=== PATIENT | male | born 1960 | race Two or more races ===

== ENCOUNTER 2023-12-14 13:53 | Inpatient (IN) | payer MEDICARE, OTHER ==
[~2023-12-14] VITALS: Ht 185.4 cm; Wt 76.2 kg
[2023-12-14 18:23] VITALS: BP 146/89; TEMP 98; O2SAT 94
[2023-12-14] MEDS ORDERED: MAG HYDROX/AL HYDROX/SIMETH 30 ML UDC PO PRN (18:30)
[2023-12-14] MEDS ORDERED: MAGNESIUM HYDROXIDE 30 ML UDC PO PRN (18:30)
[2023-12-14] MEDS: BLOOD SUGAR DIAGNOSTIC 1 EACH STRIP IN ONE (18:50)
[2023-12-14 19:15] VITALS: BP 141/88; TEMP 98.4; O2SAT 100
[2023-12-14] MEDS ORDERED: FURO20TA4 PO (19:56)
[2023-12-14] MEDS ORDERED: RISP1TAB7 PO (19:57)
[2023-12-14] MEDS ORDERED: LORA-259 PO (19:57)
[2023-12-14] MEDS ORDERED: RISP2TAB5 PO (19:58)
[2023-12-14] MEDS ORDERED: POTA-10 PO (19:59)
[2023-12-14 20:14] VITALS: BP 110/65; TEMP 98.4; O2SAT 97
[2023-12-14 20:18] VITALS: BP 141/88; TEMP 98.4; O2SAT 100
[2023-12-14] MEDS ORDERED: IBUP-2314 PO (21:22)
[2023-12-14] MEDS: risperiDONE 1 MG TABLET PO SCH (21:28)
[2023-12-15] MEDS: TEMAZEPAM 7.5 MG CAPSULE PO PRN (00:36)
[2023-12-15 08:00] VITALS: BP 137/60; TEMP 98; O2SAT 96
[2023-12-15] MEDS: POTASSIUM CHLORIDE 10 MEQ TABLET.SA PO SCH (08:41)
[2023-12-15] MEDS: NICOTINE PATCH (21MG) 21 MG PATCH.TD24 TD SCH (08:41)
[2023-12-15] MEDS: FUROSEMIDE 20 MG TABLET PO SCH (08:41)
[2023-12-15] MEDS: risperiDONE 1 MG TABLET PO SCH ×2 (08:42→16:56)
[2023-12-15 16:00] VITALS: BP 123/61; TEMP 97.7; O2SAT 96
[2023-12-15] MEDS: ENSURE ENLIVE 237 ML LIQUID (VANILLA) PO SCH (17:00)
[2023-12-15] MEDS: IBUPROFEN 200 MG TABLET PO PRN (20:30)
[2023-12-15 20:51] VITALS: BP 127/78; TEMP 97.8; O2SAT 97
[2023-12-16] MEDS: LORAZEPAM 0.5 MG TABLET PO PRN (03:12)
[2023-12-16 08:00] VITALS: BP 192/155; TEMP 98; O2SAT 100
[2023-12-16 16:00] VITALS: BP 117/80; TEMP 97.7; O2SAT 96
[2023-12-16 20:22] VITALS: BP 113/69; TEMP 97.9; O2SAT 100
[2023-12-17] MEDS: ENSURE ENLIVE 237 ML LIQUID (VANILLA) PO SCH (12:01)
[2023-12-17] MEDS: DIVALPROEX SODIUM 250 MG TABLET.DR PO SCH (13:29)
[2023-12-17 16:00] VITALS: BP 149/82; TEMP 98.6; O2SAT 96
[2023-12-17] MEDS: risperiDONE 1 MG TABLET PO SCH (16:31)
[2023-12-17 20:39] VITALS: BP 141/72; TEMP 98.6; O2SAT 100
[2023-12-18 08:00] VITALS: BP 133/87; TEMP 97.8; O2SAT 96
[2023-12-18 16:00] VITALS: BP 142/92; TEMP 97.8; O2SAT 100
[2023-12-18] MEDS: ACETAMINOPHEN 325 MG TABLET PO PRN (20:06)
[2023-12-18 20:16] VITALS: BP 145/89; TEMP 100.2; O2SAT 98
[2023-12-18 23:23] VITALS: BP 145/89; TEMP 98.7; O2SAT 98
[2023-12-19 08:00] VITALS: BP 127/73; TEMP 97.2; O2SAT 100
[2023-12-19 16:00] VITALS: BP 92/68; TEMP 98.4; O2SAT 100
[2023-12-19 20:00] VITALS: BP 123/65; TEMP 98; O2SAT 100
[2023-12-19] MEDS: DIVALPROEX SODIUM 500 MG TABLET.DR PO SCH (21:22)
[2023-12-20 08:00] VITALS: BP 96/67; TEMP 97.7; O2SAT 100
[2023-12-20 16:00] VITALS: BP 115/67; TEMP 98.7; O2SAT 100
[2023-12-20 20:00] VITALS: BP 127/79; TEMP 98.4; O2SAT 100
[2023-12-21 08:00] VITALS: BP 132/80; TEMP 97.9; O2SAT 98
[2023-12-21] MEDS: risperiDONE 1 MG TABLET PO SCH (08:43)
[2023-12-21 16:00] VITALS: BP 130/78; TEMP 97.8; O2SAT 97
[2023-12-21 20:00] VITALS: BP 128/78; TEMP 99.3; O2SAT 100
[2023-12-22 08:00] VITALS: BP_SYST 106; BP_SYST 128; BP_DIAS 65; BP_DIAS 77; TEMP 98.3; O2SAT 100
[2023-12-22 16:00] VITALS: BP 148/81; TEMP 98.3; O2SAT 97
[2023-12-22 20:17] VITALS: BP 122/79; TEMP 101.1; O2SAT 98
[2023-12-22 20:46] VITALS: BP 126/85; TEMP 98.2; O2SAT 97
[2023-12-23 06:36] LABS: BASOPHILS % (AUTO) 0.3 % (0.0-2.0); EOSINOPHILS % (AUTO) 0.1 % (0.0-6.0); HEMATOCRIT 37 % (39-51); LYMPHOCYTES # (AUTO) 1.4 K/uL (0.8-4.8); LYMPHOCYTES % (AUTO) 8.5 % (20.0-44.0); MEAN CORPUSCULAR HEMOGLOBIN 30 PG (26.0-33.0); MEAN CORPUSCULAR HGB CONC 32 g/dl (31.0-36.0); MEAN CORPUSCULAR VOLUME 94 fL (80-96); MONOCYTES # (AUTO) 1.9 K/uL (0.1-1.30); MONOCYTES % (AUTO) 11.5 % (2.0-12.0); NEUTROPHILS # (AUTO) 12.8 K/uL (1.8-8.9); NEUTROPHILS % (AUTO) 79.6 % (43.0-81.0); PLATELET COUNT (AUTO) 243 K/uL (150-450); RED BLOOD CELL COUNT(AUTO) 3.96 MIL/uL (4.5-6.0); WHITE BLOOD COUNT (AUTO) 16.1 K/uL (4.3-11.0)
[2023-12-23 07:00] LABS: ALBUMIN 2.9 g/dL (3.4-5.0); BILIRUBIN,TOTAL 1.2 mg/dL (0.2-1.0); CALCIUM, SERUM 9.2 mg/dL (8.5-10.1); CREATININE 0.8 mg/dL (0.6-1.3); POTASSIUM 4.6 mmol/L (3.5-5.1); TOTAL PROTEIN, SERUM 8.1 g/dL (6.4-8.2)
[2023-12-23 08:00] VITALS: BP 142/88; TEMP 97.6; O2SAT 98
[2023-12-23 20:51] VITALS: BP 132/86; TEMP 100.8; O2SAT 100
[2023-12-24 07:27] LABS: CALCIUM, SERUM 8.6 mg/dL (8.5-10.1); CREATININE 0.8 mg/dL (0.6-1.3); MAGNESIUM 2.2 mg/dL (1.8-2.4); PHOSPHORUS 3.4 mg/dL (2.5-4.9); POTASSIUM 4.2 mmol/L (3.5-5.1)
[2023-12-24 07:51] LABS: THYROID STIMULATING HORMONE 1.8 uIU/mL (0.358-3.74); URIC ACID 3.6 mg/dL (2.6-7.2)
[2023-12-24 11:36] LABS: ALBUMIN 2.5 g/dL (3.4-5.0); BILIRUBIN,DIRECT 0.7 mg/dL (0.0-0.2); BILIRUBIN,TOTAL 1.1 mg/dL (0.2-1.0); TOTAL PROTEIN, SERUM 7.1 g/dL (6.4-8.2)
[2023-12-24] MEDS: risperiDONE 1 MG TABLET PO SCH (21:11)
[2023-12-25 08:00] VITALS: BP 151/87; TEMP 97.7; O2SAT 100
[2023-12-25 12:27] LABS: BASOPHILS # (AUTO) 0.1 K/uL (0.0-0.2); BASOPHILS % (AUTO) 0.4 % (0.0-2.0); EOSINOPHILS % (AUTO) 0.1 % (0.0-6.0); HEMATOCRIT 35 % (39-51); HEMOGLOBIN 11.5 g/dL (13.5-17.5); LYMPHOCYTES # (AUTO) 1.2 K/uL (0.8-4.8); MEAN CORPUSCULAR HEMOGLOBIN 30 PG (26.0-33.0); MEAN CORPUSCULAR HGB CONC 33 g/dl (31.0-36.0); MEAN CORPUSCULAR VOLUME 93 fL (80-96); MONOCYTES # (AUTO) 2.6 K/uL (0.1-1.30); MONOCYTES % (AUTO) 12.8 % (2.0-12.0); NEUTROPHILS # (AUTO) 16.1 K/uL (1.8-8.9); NEUTROPHILS % (AUTO) 80.7 % (43.0-81.0); PLATELET COUNT (AUTO) 264 K/uL (150-450); RED BLOOD CELL COUNT(AUTO) 3.78 MIL/uL (4.5-6.0); RED CELL DISTRIBUTION WIDTH 12.9 % (11.5-15.0); WHITE BLOOD COUNT (AUTO) 19.9 K/uL (4.3-11.0)
[2023-12-25 12:31] LABS: CREATININE 0.7 mg/dL (0.6-1.3); POTASSIUM 4.1 mmol/L (3.5-5.1)
[2023-12-25 13:13] LABS: APPEARANCE,URINE CLEAR (CLEAR); BILIRUBIN,URINE NEGATIVE (NEGATIVE); BLOOD, URINE NEGATIVE Ery/uL (NEGATIVE); COLOR,URINE DARK YELLOW (YELLOW); KETONES,URINE 1+ mg/dL (NEGATIVE); LEUKOCYTE ESTERASE ,URINE NEGATIVE (NEGATIVE); NITRITE, URINE NEGATIVE (NEGATIVE); PROTEIN,URINE NEGATIVE (NEGATIVE); UGLUCOSE NEGATIVE (NEGATIVE)
[2023-12-25 13:22] LABS: ADD URINE CULTURE NO; BACTERIA,URINE Rare /HPF (None Seen); SQUAMOUS EPITHELIAL CELL,UR Few /HPF (None Seen)
[2023-12-25 16:15] VITALS: BP 105/73; TEMP 97.8; O2SAT 97
[2023-12-25 20:00] VITALS: BP 135/81; TEMP 97.9; O2SAT 100
[2023-12-25] MEDS: AMOX/CLAVULANATE 875 MG TABLET PO SCH (21:24)
[2023-12-26 06:57] LABS: BASOPHILS # (AUTO) 0.1 K/uL (0.0-0.2); BASOPHILS % (AUTO) 0.3 % (0.0-2.0); EOSINOPHILS % (AUTO) 0.2 % (0.0-6.0); HEMATOCRIT 33 % (39-51); HEMOGLOBIN 11.2 g/dL (13.5-17.5); LYMPHOCYTES # (AUTO) 1.4 K/uL (0.8-4.8); LYMPHOCYTES % (AUTO) 7.1 % (20.0-44.0); MEAN CORPUSCULAR HEMOGLOBIN 31 PG (26.0-33.0); MEAN CORPUSCULAR HGB CONC 33 g/dl (31.0-36.0); MEAN CORPUSCULAR VOLUME 91 fL (80-96); MONOCYTES # (AUTO) 2.8 K/uL (0.1-1.30); MONOCYTES % (AUTO) 13.8 % (2.0-12.0); NEUTROPHILS # (AUTO) 15.8 K/uL (1.8-8.9); NEUTROPHILS % (AUTO) 78.6 % (43.0-81.0); PLATELET COUNT (AUTO) 251 K/uL (150-450); RED BLOOD CELL COUNT(AUTO) 3.66 MIL/uL (4.5-6.0); RED CELL DISTRIBUTION WIDTH 12.6 % (11.5-15.0); WHITE BLOOD COUNT (AUTO) 20.1 K/uL (4.3-11.0)
[2023-12-26 07:29] LABS: CALCIUM, SERUM 8.6 mg/dL (8.5-10.1); CREATININE 0.6 mg/dL (0.6-1.3); MAGNESIUM 2.2 mg/dL (1.8-2.4); PHOSPHORUS 3.7 mg/dL (2.5-4.9); POTASSIUM 3.9 mmol/L (3.5-5.1)
[2023-12-26 08:00] VITALS: BP 101/60; TEMP 98.2; O2SAT 100
[2023-12-26 16:00] VITALS: BP 96/71; TEMP 98.4; O2SAT 100
[2023-12-26 20:00] VITALS: BP 100/78; TEMP 98.7; O2SAT 95
[2023-12-27 07:29] LABS: BASOPHILS % (AUTO) 0.1 % (0.0-2.0); EOSINOPHILS % (AUTO) 0.1 % (0.0-6.0); HEMATOCRIT 34 % (39-51); LYMPHOCYTES # (AUTO) 1.5 K/uL (0.8-4.8); LYMPHOCYTES % (AUTO) 7.4 % (20.0-44.0); MEAN CORPUSCULAR HEMOGLOBIN 30 PG (26.0-33.0); MEAN CORPUSCULAR HGB CONC 33 g/dl (31.0-36.0); MEAN CORPUSCULAR VOLUME 91 fL (80-96); MONOCYTES # (AUTO) 2.8 K/uL (0.1-1.30); MONOCYTES % (AUTO) 13.6 % (2.0-12.0); NEUTROPHILS # (AUTO) 16.3 K/uL (1.8-8.9); NEUTROPHILS % (AUTO) 78.8 % (43.0-81.0); PLATELET COUNT (AUTO) 271 K/uL (150-450); RED BLOOD CELL COUNT(AUTO) 3.72 MIL/uL (4.5-6.0); RED CELL DISTRIBUTION WIDTH 12.6 % (11.5-15.0); WHITE BLOOD COUNT (AUTO) 20.7 K/uL (4.3-11.0)
[2023-12-27 07:45] LABS: CALCIUM, SERUM 9.1 mg/dL (8.5-10.1); CREATININE 0.9 mg/dL (0.6-1.3); MAGNESIUM 2.3 mg/dL (1.8-2.4); PHOSPHORUS 4.1 mg/dL (2.5-4.9); POTASSIUM 3.9 mmol/L (3.5-5.1)
[2023-12-27 08:00] VITALS: BP 111/70; TEMP 97.9; O2SAT 100
[2023-12-27] MEDS: CEFTRIAXONE 1 G VIAL IM SCH (11:21)
[2023-12-27 16:00] VITALS: BP 100/60; TEMP 97.5; O2SAT 98
[2023-12-27 19:59] VITALS: BP 98/72; TEMP 97.9; O2SAT 99
[2023-12-28 07:39] LABS: BASOPHILS # (AUTO) 0.1 K/uL (0.0-0.2); BASOPHILS % (AUTO) 0.6 % (0.0-2.0); EOSINOPHILS % (AUTO) 0.1 % (0.0-6.0); HEMATOCRIT 35 % (39-51); HEMOGLOBIN 11.3 g/dL (13.5-17.5); LYMPHOCYTES # (AUTO) 1.6 K/uL (0.8-4.8); LYMPHOCYTES % (AUTO) 11.8 % (20.0-44.0); MEAN CORPUSCULAR HEMOGLOBIN 30 PG (26.0-33.0); MEAN CORPUSCULAR HGB CONC 32 g/dl (31.0-36.0); MEAN CORPUSCULAR VOLUME 92 fL (80-96); MONOCYTES # (AUTO) 1.9 K/uL (0.1-1.30); MONOCYTES % (AUTO) 13.7 % (2.0-12.0); NEUTROPHILS % (AUTO) 73.8 % (43.0-81.0); PLATELET COUNT (AUTO) 269 K/uL (150-450); RED BLOOD CELL COUNT(AUTO) 3.81 MIL/uL (4.5-6.0); RED CELL DISTRIBUTION WIDTH 12.2 % (11.5-15.0); WHITE BLOOD COUNT (AUTO) 13.6 K/uL (4.3-11.0)
[2023-12-28 07:47] LABS: CALCIUM, SERUM 8.4 mg/dL (8.5-10.1); CREATININE 0.7 mg/dL (0.6-1.3); MAGNESIUM 2.2 mg/dL (1.8-2.4); PHOSPHORUS 3.2 mg/dL (2.5-4.9); POTASSIUM 4.3 mmol/L (3.5-5.1)
[2023-12-28 08:00] VITALS: BP 119/70; TEMP 97.7; O2SAT 98
[2023-12-28] MEDS ORDERED: ACET325T53 PO (15:04)
[2023-12-28] MEDS ORDERED: NICO-676 TD (15:04)
[2023-12-28] MEDS ORDERED: MAGN400O6 PO (15:04)
[2023-12-28] MEDS ORDERED: RISP2TAB85 PO (15:04)
[2023-12-28] MEDS ORDERED: TEMA7.5C12 PO (15:04)
[2023-12-28] MEDS ORDERED: CEFT1VIA15 IM (15:04)
[2023-12-28] MEDS ORDERED: IBUP-1953 PO (15:04)
[2023-12-28] MEDS ORDERED: RISP3TAB61 PO (15:04)
[2023-12-28] MEDS ORDERED: DIVA-78 PO (15:04)
[2023-12-28] MEDS ORDERED: LORA-258 PO (15:04)
[2023-12-28] MEDS ORDERED: MAG30ORA PO (15:04)
== END 2023-12-28 13:55 | disposition short-term general hospital (02) | DRG 885 ==
LOC: GPS 17:17
PROVIDERS: ADMIT Psychiatry & Neurology Psychosomatic Medicine; ATTEND Nurse Practitioner Acute Care
DX: F25.9 Schizoaffective disorder, unspecified (principal); E43 Unspecified severe protein-calorie malnutrition; J18.9 Pneumonia, unspecified organism; Z59.00 Homelessness unspecified; E87.1 Hypo-osmolality and hyponatremia; F41.9 Anxiety disorder, unspecified; F32.A Depression, unspecified; D64.9 Anemia, unspecified; E88.09 Other disorders of plasma-protein metabolism, not elsewhere classified; F29 Unspecified psychosis not due to a substance or known physiological condition; Z73.6 Limitation of activities due to disability; M62.50 Muscle wasting and atrophy, not elsewhere classified, unspecified site; F17.210 Nicotine dependence, cigarettes, uncomplicated; E86.9 Volume depletion, unspecified; R60.9 Edema, unspecified; K46.9 Unspecified abdominal hernia without obstruction or gangrene; Z20.822 Contact with and (suspected) exposure to COVID-19; Z68.22 Body mass index [BMI] 22.0-22.9, adult; E80.6 Other disorders of bilirubin metabolism
CPT/HCPCS: 36415; 71045-TC; 80048-TC; 80053-TC; 80076-TC; 80164-TC; 81001; 83735-TC; 83935-TC; 84100-TC; 84300-TC; 84443-TC; 84550-TC; 85025-TC; 87081-TC; 87086-TC; 93970-TC; 97116-TC; J0696

== ENCOUNTER 2023-12-28 14:36 | Inpatient (IN) | payer MEDICARE, OTHER ==
[~2023-12-28] VITALS: Ht 170.2 cm; Wt 87.5 kg
[~2023-12-28 14:36] MED LIST: FURO20TA4 PO; IBUP-2314 PO; POTA-10 PO
[2023-12-28] MEDS ORDERED: ACETAMINOPHEN 325 MG TABLET PO PRN (15:00)
[2023-12-28] MEDS ORDERED: ONDANSETRON HCL/PF 4 MG/2 ML VIAL IVP PRN (15:00)
[2023-12-28] MEDS ORDERED: TEMA7.5C12 PO (15:04)
[2023-12-28] MEDS ORDERED: MAGN400O6 PO (15:04)
[2023-12-28] MEDS ORDERED: RISP2TAB85 PO (15:04)
[2023-12-28] MEDS ORDERED: DIVA-78 PO (15:04)
[2023-12-28] MEDS ORDERED: IBUP-1953 PO (15:04)
[2023-12-28] MEDS ORDERED: ACET325T53 PO (15:04)
[2023-12-28] MEDS ORDERED: RISP3TAB61 PO (15:04)
[2023-12-28] MEDS ORDERED: LORA-258 PO (15:04)
[2023-12-28] MEDS ORDERED: NICO-676 TD (15:04)
[2023-12-28] MEDS ORDERED: MAG30ORA PO (15:04)
[2023-12-28] MEDS ORDERED: CEFT1VIA15 IM (15:04)
[2023-12-28 16:00] VITALS: BP 117/76; TEMP 97.6; O2SAT 100
[2023-12-28 20:00] VITALS: BP 110/80; TEMP 99.1; O2SAT 99
[2023-12-28] MEDS ORDERED: MAG HYDROX/AL HYDROX/SIMETH 30 ML UDC PO PRN (22:00)
[2023-12-28] MEDS ORDERED: TEMAZEPAM 7.5 MG CAPSULE PO PRN (22:00)
[2023-12-28] MEDS ORDERED: LORAZEPAM 0.5 MG TABLET PO PRN (22:00)
[2023-12-28] MEDS ORDERED: IBUPROFEN 400 MG TABLET PO PRN (22:00)
[2023-12-28] MEDS ORDERED: MAGNESIUM HYDROXIDE 30 ML UDC PO PRN (22:00)
[2023-12-28] MEDS: risperiDONE 1 MG TABLET PO SCH (22:32)
[2023-12-29] MEDS: NICOTINE PATCH (14MG) 14 MG PATCH.TD24 TD SCH (09:00)
[2023-12-29] MEDS: CEFTRIAXONE 1 G VIAL IM SCH (10:00)
[2023-12-29] MEDS: risperiDONE 1 MG TABLET PO SCH (10:02)
[2023-12-29] MEDS: POTASSIUM CHLORIDE 10 MEQ TABLET.SA PO SCH (10:03)
[2023-12-29] MEDS: DIVALPROEX SODIUM 500 MG TABLET.DR PO SCH (10:03)
[2023-12-29] MEDS: FUROSEMIDE 20 MG TABLET PO SCH (10:03)
== END 2023-12-29 16:00 | DRG 178 ==
LOC: MED 14:36
PROVIDERS: ADMIT Nurse Practitioner Acute Care; ATTEND Nurse Practitioner Acute Care
DX: J15.69 Pneumonia due to other Gram-negative bacteria (principal); E87.1 Hypo-osmolality and hyponatremia; Z59.00 Homelessness unspecified; F20.9 Schizophrenia, unspecified; E86.9 Volume depletion, unspecified; F17.210 Nicotine dependence, cigarettes, uncomplicated; F29 Unspecified psychosis not due to a substance or known physiological condition; Z73.6 Limitation of activities due to disability; K46.9 Unspecified abdominal hernia without obstruction or gangrene; D72.829 Elevated white blood cell count, unspecified
CPT/HCPCS: G0378; J0696

== ENCOUNTER 2024-01-04 19:54 | Inpatient (IN) | payer MEDICARE, OTHER ==
[~2024-01-04] VITALS: Ht 185.4 cm; Wt 87.5 kg
[~2024-01-04 19:54] MED LIST changes: +ACET325T53 PO; +CEFT1VIA15 IM; +DIVA-78 PO; +IBUP-1953 PO; -IBUP-2314 PO; +LORA-258 PO; +MAG30ORA PO; +MAGN400O6 PO; +NICO-676 TD; +RISP2TAB85 PO; +RISP3TAB61 PO; +TEMA7.5C12 PO
[2024-01-04 21:29] LABS: APPEARANCE,URINE Clear (CLEAR); BILIRUBIN,URINE Negative (NEGATIVE); BLOOD, URINE Negative Ery/uL (NEGATIVE); COLOR,URINE YELLOW (YELLOW); KETONES,URINE Negative (NEGATIVE); LEUKOCYTE ESTERASE ,URINE Negative (NEGATIVE); NITRITE, URINE Negative (NEGATIVE); PROTEIN,URINE Negative (NEGATIVE); UGLUCOSE Negative (NEGATIVE)
[2024-01-04 21:41] LABS: RBC,URINE 0-2 /HPF (0-2)
[2024-01-04 21:42] LABS: ADD URINE CULTURE NO; AMPHETAMINE, URINE NEGATIVE (NEGATIVE); BACTERIA,URINE Few /HPF (None Seen); BARBITURATE, URINE NEGATIVE (NEGATIVE); BENZODIAZEPINE, URINE NEGATIVE (NEGATIVE); CANNABINOID, URINE NEGATIVE (NEGATIVE); COCCAINE, URINE NEGATIVE (NEGATIVE); OPIATE, URINE NEGATIVE (NEGATIVE); PHENCYCLIDINE SCREEN,URINE NEGATIVE (NEGATIVE); SQUAMOUS EPITHELIAL CELL,UR Few /HPF (None Seen); WBC,URINE 0-2 /HPF (0-3)
[2024-01-04 22:24] LABS: BASOPHILS # (AUTO) 0.1 K/uL (0.0-0.2); BASOPHILS % (AUTO) 0.9 % (0.0-2.0); EOSINOPHILS # (AUTO) 0.1 K/uL (0.0-0.7); EOSINOPHILS % (AUTO) 0.7 % (0.0-6.0); HEMATOCRIT 35 % (39-51); HEMOGLOBIN 11.4 g/dL (13.5-17.5); LYMPHOCYTES # (AUTO) 2.5 K/uL (0.8-4.8); LYMPHOCYTES % (AUTO) 31.5 % (20.0-44.0); MEAN CORPUSCULAR HEMOGLOBIN 30 PG (26.0-33.0); MEAN CORPUSCULAR HGB CONC 33 g/dl (31.0-36.0); MEAN CORPUSCULAR VOLUME 92 fL (80-96); MONOCYTES # (AUTO) 1.2 K/uL (0.1-1.30); MONOCYTES % (AUTO) 14.8 % (2.0-12.0); NEUTROPHILS # (AUTO) 4.1 K/uL (1.8-8.9); NEUTROPHILS % (AUTO) 52.1 % (43.0-81.0); PLATELET COUNT (AUTO) 213 K/uL (150-450); RED CELL DISTRIBUTION WIDTH 13.1 % (11.5-15.0); WHITE BLOOD COUNT (AUTO) 7.8 K/uL (4.3-11.0)
[2024-01-04 22:41] LABS: POTASSIUM 4.2 mmol/L (3.5-5.1); SODIUM SERUM 143 mmol/L (136-145)
[2024-01-04 23:02] LABS: ALCOHOL, BLOOD < 3 mg/dL (0-10); ALKALINE PHOSPHATASE 65 U/L (46-116); ASPARTATE AMINOTRANSFERASE 44 U/L (15-37); BILIRUBIN,TOTAL 0.6 mg/dL (0.2-1.0); CALCIUM, SERUM 8.8 mg/dL (8.5-10.1); CARBON DIOXIDE 30 mmol/L (21-32); CREATININE 0.7 mg/dL (0.6-1.3); GLUCOSE 82 mg/dL (74-106); TOTAL PROTEIN, SERUM 7.6 g/dL (6.4-8.2); UREA NITROGEN, BLOOD 15 mg/dL (7-18)
[2024-01-04 23:03] LABS: SALICYLATE 0.6 mg/dL (2.8-20.0)
[2024-01-04 23:16] LABS: ACETAMINOPHEN 34 ug/ml (10-30)
[2024-01-04 23:38] LABS: ALBUMIN 2.7 g/dL (3.4-5.0)
[2024-01-04 23:39] LABS: ALANINE AMINOTRANSFERASE 35 U/L (12-78); BILIRUBIN,DIRECT 0.3 mg/dL (0.0-0.2); CHLORIDE 103 mmol/L (98-107)
[2024-01-05] MEDS ORDERED: ALBU2.5V38 IH (05:13)
[2024-01-05] MEDS: BLOOD SUGAR DIAGNOSTIC 1 EACH STRIP IN ONE (05:21)
[2024-01-05] MEDS ORDERED: LORAZEPAM 0.5 MG TABLET PO PRN (05:30)
[2024-01-05] MEDS ORDERED: TEMAZEPAM 7.5 MG CAPSULE PO PRN (05:30)
[2024-01-05] MEDS ORDERED: MAGNESIUM HYDROXIDE 30 ML UDC PO PRN (05:30)
[2024-01-05] MEDS ORDERED: MAG HYDROX/AL HYDROX/SIMETH 30 ML UDC PO PRN (05:30)
[2024-01-05 05:33] VITALS: BP 125/74; TEMP 98; O2SAT 98
[2024-01-05 08:00] VITALS: BP 111/77; TEMP 98; O2SAT 100
[2024-01-05] MEDS ORDERED: ALBU0.633 IH (08:22)
[2024-01-05] MEDS: NICOTINE PATCH (14MG) 14 MG PATCH.TD24 TD SCH (08:39)
[2024-01-05] MEDS: DIVALPROEX SODIUM 500 MG TABLET.DR PO SCH (13:46)
[2024-01-05] MEDS: risperiDONE 1 MG TABLET PO SCH (13:46)
[2024-01-05 16:00] VITALS: BP 101/67; TEMP 98.3; O2SAT 100
[2024-01-05] MEDS ORDERED: ALBUTEROL FS 2.5 MG/3 ML VIAL.NEB NEB PRN (17:00)
[2024-01-05 21:07] VITALS: BP 106/77; TEMP 98.4; O2SAT 96
[2024-01-06 08:00] VITALS: BP 100/80; TEMP 98.6; O2SAT 98
[2024-01-06] MEDS: NICOTINE PATCH (14MG) 14 MG PATCH.TD24 TD SCH (08:31)
[2024-01-06] MEDS: POTASSIUM CHLORIDE 10 MEQ TABLET.SA PO SCH (08:31)
[2024-01-06] MEDS: FUROSEMIDE 20 MG TABLET PO SCH (08:32)
[2024-01-06 16:00] VITALS: BP 100/77; TEMP 97.7; O2SAT 99
[2024-01-06 20:37] VITALS: BP 124/88; TEMP 98.6; O2SAT 98
[2024-01-07 08:00] VITALS: BP 89/56; TEMP 98.4; O2SAT 97
[2024-01-07 16:00] VITALS: BP 93/66; TEMP 97.8; O2SAT 100
[2024-01-07 20:36] VITALS: BP 90/58; TEMP 98.6; O2SAT 99
[2024-01-07] MEDS: risperiDONE 1 MG TABLET PO SCH (21:23)
[2024-01-08 08:00] VITALS: BP 104/79; TEMP 98.4; O2SAT 99
[2024-01-08 16:00] VITALS: BP 122/96; TEMP 98.8; O2SAT 96
[2024-01-08 20:26] VITALS: BP 107/79; TEMP 98.3; O2SAT 100
[2024-01-08] MEDS: risperiDONE 1 MG TABLET PO SCH (21:46)
[2024-01-09 08:00] VITALS: BP 105/74; TEMP 98; O2SAT 100
[2024-01-09 16:00] VITALS: BP 112/80; TEMP 97.8; O2SAT 100
[2024-01-09 20:43] VITALS: BP 113/70; TEMP 98.1; O2SAT 100
[2024-01-10 08:00] VITALS: BP 95/68; TEMP 98; O2SAT 97
[2024-01-10 16:00] VITALS: BP 95/66; TEMP 98.6; O2SAT 98
[2024-01-10 20:00] VITALS: BP 109/69; TEMP 98; O2SAT 98
[2024-01-11 08:00] VITALS: BP 104/68; TEMP 98; O2SAT 99
[2024-01-11 16:00] VITALS: BP 102/60; TEMP 98; O2SAT 100
[2024-01-11 20:00] VITALS: BP 105/73; TEMP 97.7; O2SAT 100
[2024-01-11] MEDS: LORAZEPAM 0.5 MG TABLET PO PRN (22:04)
[2024-01-12 09:11] VITALS: BP 94/71; TEMP 97.6; O2SAT 98
[2024-01-12 15:53] VITALS: BP 110/63; TEMP 97.6; O2SAT 98
[2024-01-12 20:37] VITALS: BP 106/68; TEMP 98; O2SAT 100
[2024-01-12] MEDS: TEMAZEPAM 7.5 MG CAPSULE PO PRN (23:35)
[2024-01-13 08:00] VITALS: BP 96/62; TEMP 98; O2SAT 98
[2024-01-13 16:00] VITALS: BP 95/63; TEMP 98.1; O2SAT 100
[2024-01-13 20:49] VITALS: BP 111/71; TEMP 97.9; O2SAT 100
[2024-01-14 08:00] VITALS: BP 109/81; TEMP 97.8; O2SAT 98
[2024-01-14 16:00] VITALS: BP 110/82; TEMP 97.9; O2SAT 98
[2024-01-14 21:14] VITALS: BP 109/68; TEMP 98.2; O2SAT 99
[2024-01-15 08:00] VITALS: BP 119/77; TEMP 98.6; O2SAT 100
[2024-01-15 16:00] VITALS: BP 118/69; TEMP 98.6; O2SAT 100
[2024-01-15 20:00] VITALS: BP 100/62; TEMP 97.6; O2SAT 100
[2024-01-15] MEDS: ACETAMINOPHEN 325 MG TABLET PO PRN (21:55)
[2024-01-16 08:00] VITALS: BP 99/64; TEMP 98; O2SAT 100
== END 2024-01-16 14:30 | DRG 885 ==
LOC: ER 20:00 → GPS 01-05 04:25
PROVIDERS: ADMIT Psychiatry & Neurology Psychosomatic Medicine; ATTEND Nurse Practitioner Family
DX: F25.9 Schizoaffective disorder, unspecified (principal); I11.0 Hypertensive heart disease with heart failure; E44.0 Moderate protein-calorie malnutrition; I50.9 Heart failure, unspecified; Z20.822 Contact with and (suspected) exposure to COVID-19; E88.09 Other disorders of plasma-protein metabolism, not elsewhere classified; D64.9 Anemia, unspecified; G62.9 Polyneuropathy, unspecified; J44.9 Chronic obstructive pulmonary disease, unspecified; Z87.01 Personal history of pneumonia (recurrent); Z73.6 Limitation of activities due to disability; R74.01 Elevation of levels of liver transaminase levels; Z68.25 Body mass index [BMI] 25.0-25.9, adult; R41.9 Unspecified symptoms and signs involving cognitive functions and awareness
CPT/HCPCS: 36415; 71045-TC; 80048-TC; 80076-TC; 81001; 85025-TC; 87081-TC; 97116-TC; 97530-TC; A4223; G0480; J7070

== ENCOUNTER 2024-02-07 18:55 | Inpatient (IN) | payer MEDICARE, OTHER ==
[~2024-02-07] VITALS: Ht 177.8 cm; Wt 82.1 kg
[~2024-02-07 18:55] MED LIST changes: +ALBU0.633 IH; -CEFT1VIA15 IM; -RISP3TAB61 PO
[2024-02-07] MEDS ORDERED: MAG-5 PO (19:22)
[2024-02-07 19:27] LABS: BASOPHILS % (AUTO) 0.5 % (0.0-2.0); EOSINOPHILS # (AUTO) 0.1 K/uL (0.0-0.7); EOSINOPHILS % (AUTO) 1.7 % (0.0-6.0); HEMATOCRIT 34 % (39-51); HEMOGLOBIN 11.2 g/dL (13.5-17.5); LYMPHOCYTES # (AUTO) 1.6 K/uL (0.8-4.8); LYMPHOCYTES % (AUTO) 31.6 % (20.0-44.0); MEAN CORPUSCULAR HEMOGLOBIN 31 PG (26.0-33.0); MEAN CORPUSCULAR HGB CONC 33 g/dl (31.0-36.0); MEAN CORPUSCULAR VOLUME 93 fL (80-96); MONOCYTES # (AUTO) 0.6 K/uL (0.1-1.30); MONOCYTES % (AUTO) 12.6 % (2.0-12.0); NEUTROPHILS # (AUTO) 2.7 K/uL (1.8-8.9); NEUTROPHILS % (AUTO) 53.6 % (43.0-81.0); PLATELET COUNT (AUTO) 152 K/uL (150-450); RED BLOOD CELL COUNT(AUTO) 3.67 MIL/uL (4.5-6.0); RED CELL DISTRIBUTION WIDTH 15.6 % (11.5-15.0); WHITE BLOOD COUNT (AUTO) 5.1 K/uL (4.3-11.0)
[2024-02-07 19:50] LABS: CALCIUM, SERUM 8.7 mg/dL (8.5-10.1); CARBON DIOXIDE 30 mmol/L (21-32); CHLORIDE 105 mmol/L (98-107); CREATININE 1.1 mg/dL (0.6-1.3); GLUCOSE 94 mg/dL (74-106); POTASSIUM 4.1 mmol/L (3.5-5.1); SODIUM SERUM 140 mmol/L (136-145); UREA NITROGEN, BLOOD 25 mg/dL (7-18)
[2024-02-07 19:56] LABS: ALANINE AMINOTRANSFERASE 30 U/L (12-78); ALBUMIN 2.9 g/dL (3.4-5.0); ALKALINE PHOSPHATASE 64 U/L (46-116); ASPARTATE AMINOTRANSFERASE 37 U/L (15-37); BILIRUBIN,DIRECT 0.3 mg/dL (0.0-0.2); BILIRUBIN,TOTAL 0.4 mg/dL (0.2-1.0); TOTAL PROTEIN, SERUM 7.4 g/dL (6.4-8.2)
[2024-02-07 20:03] LABS: ACETAMINOPHEN < 2 ug/ml (10-30); ALCOHOL, BLOOD < 3 mg/dL (0-10); SALICYLATE 1.2 mg/dL (2.8-20.0)
[2024-02-07 20:37] LABS: APPEARANCE,URINE Clear (CLEAR); BILIRUBIN,URINE Negative (NEGATIVE); BLOOD, URINE Negative Ery/uL (NEGATIVE); COLOR,URINE YELLOW (YELLOW); KETONES,URINE Negative (NEGATIVE); LEUKOCYTE ESTERASE ,URINE Negative (NEGATIVE); NITRITE, URINE Negative (NEGATIVE); PROTEIN,URINE Negative (NEGATIVE); UGLUCOSE Negative (NEGATIVE)
[2024-02-07 20:46] LABS: ADD URINE CULTURE NO; BACTERIA,URINE Rare /HPF (None Seen); RBC,URINE 0-2 /HPF (0-2); SQUAMOUS EPITHELIAL CELL,UR None Seen /HPF (None Seen); WBC,URINE 0-2 /HPF (0-3)
[2024-02-07 20:51] LABS: AMPHETAMINE, URINE NEGATIVE (NEGATIVE); BARBITURATE, URINE NEGATIVE (NEGATIVE); BENZODIAZEPINE, URINE NEGATIVE (NEGATIVE); CANNABINOID, URINE NEGATIVE (NEGATIVE); COCCAINE, URINE NEGATIVE (NEGATIVE); OPIATE, URINE NEGATIVE (NEGATIVE); PHENCYCLIDINE SCREEN,URINE NEGATIVE (NEGATIVE)
[2024-02-07] MEDS ORDERED: MAGNESIUM HYDROXIDE 30 ML UDC PO PRN ×2 (21:00→23:00)
[2024-02-07] MEDS ORDERED: ALBUTEROL FS 2.5 MG/3 ML VIAL.NEB NEB PRN (21:00)
[2024-02-07] MEDS ORDERED: ALBUTEROL SULFATE IH PRN (21:00)
[2024-02-07] MEDS ORDERED: MAG HYDROX/AL HYDROX/SIMETH 30 ML UDC PO PRN ×2 (21:00→23:00)
[2024-02-07] MEDS ORDERED: ACETAMINOPHEN 325 MG TABLET PO PRN ×2 (21:00→23:00)
[2024-02-07 21:50] VITALS: O2SAT 96
[2024-02-07] MEDS ORDERED: TEMAZEPAM 7.5 MG CAPSULE PO PRN ×2 (23:00)
[2024-02-07] MEDS ORDERED: LORAZEPAM 0.5 MG TABLET PO PRN (23:00)
[2024-02-08] MEDS: BLOOD SUGAR DIAGNOSTIC 1 EACH STRIP IN ONE (00:02)
[2024-02-08 08:00] VITALS: BP 121/84; TEMP 98.6; O2SAT 98
[2024-02-08] MEDS: FUROSEMIDE 20 MG TABLET PO SCH (08:50)
[2024-02-08] MEDS: NICOTINE PATCH (14MG) 14 MG PATCH.TD24 TD SCH (08:50)
[2024-02-08 16:00] VITALS: BP 106/75; TEMP 97.7; O2SAT 99
[2024-02-08 20:00] VITALS: BP 115/68; TEMP 98; O2SAT 97
[2024-02-08] MEDS: DIVALPROEX SODIUM 500 MG TABLET.DR PO SCH (21:25)
[2024-02-08] MEDS: risperiDONE 1 MG TABLET PO SCH (21:25)
[2024-02-09 07:17] LABS: BASOPHILS # (AUTO) 0.1 K/uL (0.0-0.2); EOSINOPHILS # (AUTO) 0.1 K/uL (0.0-0.7); HEMATOCRIT 34 % (39-51); HEMOGLOBIN 11.5 g/dL (13.5-17.5); LYMPHOCYTES # (AUTO) 1.9 K/uL (0.8-4.8); LYMPHOCYTES % (AUTO) 33.1 % (20.0-44.0); MEAN CORPUSCULAR HEMOGLOBIN 31 PG (26.0-33.0); MEAN CORPUSCULAR HGB CONC 33 g/dl (31.0-36.0); MEAN CORPUSCULAR VOLUME 92 fL (80-96); MONOCYTES # (AUTO) 0.7 K/uL (0.1-1.30); MONOCYTES % (AUTO) 11.5 % (2.0-12.0); NEUTROPHILS # (AUTO) 3.1 K/uL (1.8-8.9); NEUTROPHILS % (AUTO) 52.4 % (43.0-81.0); PLATELET COUNT (AUTO) 157 K/uL (150-450); RED BLOOD CELL COUNT(AUTO) 3.72 MIL/uL (4.5-6.0); RED CELL DISTRIBUTION WIDTH 15.6 % (11.5-15.0); WHITE BLOOD COUNT (AUTO) 5.9 K/uL (4.3-11.0)
[2024-02-09 07:30] LABS: CALCIUM, SERUM 8.7 mg/dL (8.5-10.1); CREATININE 0.9 mg/dL (0.6-1.3); POTASSIUM 4.1 mmol/L (3.5-5.1)
[2024-02-09] MEDS: POTASSIUM CHLORIDE 10 MEQ TABLET.SA PO SCH (09:00)
[2024-02-09] MEDS: risperiDONE 1 MG TABLET PO SCH ×2 (09:00→22:04)
[2024-02-10] MEDS: LORAZEPAM 0.5 MG TABLET PO PRN (02:04)
[2024-02-10 20:52] VITALS: BP 125/79; TEMP 98.3; O2SAT 100
[2024-02-11 16:00] VITALS: BP 126/77; TEMP 98.7; O2SAT 100
[2024-02-11 20:51] VITALS: BP 117/95; TEMP 98.1; O2SAT 99
[2024-02-11] MEDS: DIVALPROEX SODIUM 125 MG TABLET.DR PO ONE (21:40)
[2024-02-11] MEDS: DIVALPROEX SODIUM 125 MG TABLET.DR PO SCH (21:43)
[2024-02-12] MEDS: DIVALPROEX SODIUM 500 MG TABLET.DR PO SCH (08:35)
[2024-02-12 16:00] VITALS: BP 107/74; TEMP 98.6; O2SAT 100
[2024-02-12 20:00] VITALS: BP 124/72; TEMP 98.1; O2SAT 99
[2024-02-13 08:00] VITALS: BP 139/77; TEMP 98.6; O2SAT 97
[2024-02-13 16:00] VITALS: BP 100/60; TEMP 98.6; O2SAT 100
[2024-02-13 20:00] VITALS: BP 113/72; TEMP 98.3; O2SAT 100
[2024-02-14 08:00] VITALS: BP 129/88; TEMP 97.6; O2SAT 100
[2024-02-14 16:00] VITALS: BP 126/80; TEMP 98; O2SAT 98
[2024-02-14 20:00] VITALS: BP 115/81; TEMP 97.2; O2SAT 98
[2024-02-15 08:00] VITALS: BP 112/72; TEMP 97.7; O2SAT 98
[2024-02-15 16:04] VITALS: BP 106/69; TEMP 98; O2SAT 97
[2024-02-15 20:13] VITALS: BP 118/81; TEMP 99; O2SAT 98
[2024-02-16 08:00] VITALS: BP 118/75; TEMP 97.5; O2SAT 100
[2024-02-16 16:00] VITALS: BP 109/60; TEMP 98.7; O2SAT 98
[2024-02-16 20:18] VITALS: BP 120/65; TEMP 98.1; O2SAT 98
[2024-02-17 08:00] VITALS: BP 111/74; TEMP 97.9; O2SAT 100
[2024-02-17 20:32] VITALS: BP 123/80; TEMP 97.9; O2SAT 100
[2024-02-18 16:00] VITALS: BP 130/84; TEMP 97.8; O2SAT 97
[2024-02-18 21:00] VITALS: BP 110/64; TEMP 97.8; O2SAT 100
[2024-02-19 08:23] VITALS: BP 122/81; TEMP 98.2; O2SAT 100
[2024-02-19] MEDS: OLANZAPINE 10 MG VIAL IM ONE (14:44)
[2024-02-19 16:00] VITALS: BP 133/79; TEMP 97.4; O2SAT 100
[2024-02-19 20:00] VITALS: BP 113/78; TEMP 97.4; O2SAT 100
[2024-02-20 08:00] VITALS: BP 109/93; TEMP 98.6; O2SAT 99
[2024-02-20 08:09] LABS: BASOPHILS % (AUTO) 0.7 % (0.0-2.0); EOSINOPHILS # (AUTO) 0.1 K/uL (0.0-0.7); EOSINOPHILS % (AUTO) 2.5 % (0.0-6.0); HEMATOCRIT 38 % (39-51); HEMOGLOBIN 12.6 g/dL (13.5-17.5); LYMPHOCYTES # (AUTO) 1.9 K/uL (0.8-4.8); LYMPHOCYTES % (AUTO) 41.8 % (20.0-44.0); MEAN CORPUSCULAR HEMOGLOBIN 31 PG (26.0-33.0); MEAN CORPUSCULAR HGB CONC 33 g/dl (31.0-36.0); MEAN CORPUSCULAR VOLUME 93 fL (80-96); MONOCYTES # (AUTO) 0.5 K/uL (0.1-1.30); MONOCYTES % (AUTO) 11.7 % (2.0-12.0); NEUTROPHILS % (AUTO) 43.3 % (43.0-81.0); PLATELET COUNT (AUTO) 120 K/uL (150-450); RED BLOOD CELL COUNT(AUTO) 4.11 MIL/uL (4.5-6.0); RED CELL DISTRIBUTION WIDTH 15.6 % (11.5-15.0); WHITE BLOOD COUNT (AUTO) 4.6 K/uL (4.3-11.0)
[2024-02-20 08:33] LABS: ALBUMIN 3.2 g/dL (3.4-5.0); BILIRUBIN,TOTAL 0.6 mg/dL (0.2-1.0); CREATININE 0.9 mg/dL (0.6-1.3)
[2024-02-20] MEDS: OLANZAPINE 5 MG TABLET PO SCH (11:43)
[2024-02-20 15:37] VITALS: BP 131/58; TEMP 98.8; O2SAT 96
[2024-02-20 20:00] VITALS: BP 127/76; TEMP 98.8; O2SAT 99
[2024-02-21 08:00] VITALS: BP 125/91; TEMP 98; O2SAT 100
[2024-02-21 16:00] VITALS: BP 133/82; TEMP 98.9; O2SAT 100
[2024-02-21 20:00] VITALS: BP 124/86; TEMP 98.4; O2SAT 99
[2024-02-21] MEDS ORDERED: DIVALPROEX SODIUM 125 MG TABLET.DR PO ONE (21:17)
[2024-02-22 08:00] VITALS: BP 119/67; TEMP 97.9; O2SAT 99
== END 2024-02-22 13:45 | DRG 885 ==
LOC: ER 19:00 → GPS 22:08
PROVIDERS: ADMIT Psychiatry & Neurology Psychosomatic Medicine; ATTEND Nurse Practitioner Acute Care
DX: F25.9 Schizoaffective disorder, unspecified (principal); I11.0 Hypertensive heart disease with heart failure; E44.1 Mild protein-calorie malnutrition; I50.22 Chronic systolic (congestive) heart failure; F17.210 Nicotine dependence, cigarettes, uncomplicated; E88.09 Other disorders of plasma-protein metabolism, not elsewhere classified; Z66 Do not resuscitate; J44.9 Chronic obstructive pulmonary disease, unspecified; M15.9 Polyosteoarthritis, unspecified; R41.9 Unspecified symptoms and signs involving cognitive functions and awareness; Z91.199 Patient's noncompliance with other medical treatment and regimen due to unspecified reason; Z88.8 Allergy status to other drugs, medicaments and biological substances; Z79.899 Other long term (current) drug therapy; F39 Unspecified mood [affective] disorder
CPT/HCPCS: 36415; 80048-TC; 80053-TC; 80061-TC; 80076-TC; 80164-TC; 81001; 82962-TC; 85025-TC; 87081-TC; 97116-TC; 97530-TC; G0480; J3490